=== PATIENT | male | born 1960 | race Two or more races ===

== ENCOUNTER 2021-09-06 22:02 | Emergency (ER) | payer MEDICAID, OTHER ==
[~2021-09-06] VITALS: Ht 165.1 cm; Wt 99.8 kg
[2021-09-06] MEDS ORDERED: IPRATROPIUM BROM 0.5 MG/2.5ML INH SOL NEB ONE (22:15)
[2021-09-06] MEDS ORDERED: ALBUTEROL SULF 2.5 MG/0.5ML(0.5%) NEB SOLN NEB ONE (22:15)
[2021-09-06 22:55] VITALS: BP 166/79
[2021-09-06 23:02] LABS: Basophils # (auto) 0 10 ^3/uL (0-0.2); Basophils % (auto) 0.6 % (0.0-2.0); Eosinophils # (auto) 0.2 10 ^3/uL (0-0.8); Eosinophils % (auto) 2.4 % (0.0-7.0); Hematocrit 43.1 % (41.0-53.0); Hemoglobin 14.5 g/dL (13.5-17.5); Lymphocytes % (auto) 14.4 % (10.0-50.0); Mean Corpuscular Hemoglobin 30.7 pg (28.0-32.0); Mean Corpuscular Hgb Conc. 33.8 g/dL (32.0-36.0); Mean Corpuscular Volume 91.1 fL (80.0-100.0); Monocytes # (auto) 0.9 10 ^3/uL (0-1.3); Monocytes % (auto) 13.1 % (0.0-12.0); Neutrophils # (auto) 4.9 10 ^3/uL (1.6-8.6); Neutrophils % (auto) 69.5 % (37.0-80.0); Nucleated Red Blood Cells % 0.1 %; Red Blood Cells 4.73 10^6/uL (4.5-5.90); Red Cell Distribution Width 13.4 % (11.8-14.3); White Blood Cell 7.1 10^3/uL (4.4-10.8)
[2021-09-06 23:23] LABS: Alanine Aminotransferase 48 U/L (16-61); Albumin 3.6 g/dL (3.4-5.0); Anion Gap 6 (5-15); Aspartate Aminotransferase 46 U/L (15-37); BUN/Creatinine Ratio 14.6; Blood Urea Nitrogen 13 mg/dL (7-18); Calcium 8.4 mg/dL (8.5-10.1); Carbon Dioxide 29 mmol/L (21-32); Chloride 106 mmol/L (98-107); GFR African American 111 mL/min; GFR Non-African American 92 mL/min; Glucose 107 mg/dL (74-106); Potassium 3.9 mmol/L (3.5-5.1); Sodium 141 mmol/L (136-145)
[2021-09-06 23:28] LABS: Alkaline Phosphatase 76 U/L (45-117); Bilirubin, Total 0.7 mg/dL (0.2-1.0); Total Protein 7.4 g/dL (6.4-8.2)
[2021-09-07] MEDS ORDERED: ALBU108A5 IN (03:19)
[2021-09-07] MEDS ORDERED: AZIT1POW12 PO (03:19)
== END 2021-09-07 03:12 | disposition home or self-care (01) ==
LOC: ER 22:02
DX: J20.9 Acute bronchitis, unspecified (principal); I10 Essential (primary) hypertension; F17.210 Nicotine dependence, cigarettes, uncomplicated
CPT/HCPCS: 36415; 71045; 80053; 83880; 84484; 85025; 94640; 99284; J7644